=== PATIENT | female | born 1965 | race Caucasian/White ===

== ENCOUNTER 2024-03-04 13:39 | Observation (INO) ==
--- NOTE | 2024-03-04 14:48 | Emergency Department Note ---
Impression & Plan Allergic reaction, Lip swelling ED Provider Note HISTORY OF PRESENT ILLNESS: Patient is a 58-year-old female presenting with lip swelling. Patient presents from the [facility] facility. This is her third visit for similar symptoms. She reports that she had an allergic reaction to an unknown trigger yesterday. She had her initial rash. She was instructed that if she started having any lip swelling or trouble breathing that she should represent to the ER. Patient presented very early this morning for lip swelling. She was given epinephrine. Patient reports that she was doing better and then went back to the [facility] and her lip swelling worsened. She was given an IM epinephrine about 2 hours prior to my assessment. She states that her lip swelling is still the same. Unknown trigger. She is currently on Prozac taper. Denies any other new medications other than a sleep aid which she started last week per the recommendation of her psychiatrist. Denies any new soaps. She does report she has had some new food exposures since being at the [facility]. Denies any new lip gloss or cosmetics that have been used on her face. Patient does have a swollen upper lip. She denies any difficulty swallowing. Denies any tongue swelling. Denies any chest pain or shortness of breath. Denies any wheezing. Patient was given prednisone and Benadryl earlier this morning on her visit to the emergency department. In route to the hospital, patient was given IV Benadryl via EMS. Patient denies any lisinopril use. ROS: as above PHYSICAL EXAM: Constitutional: Patient appears in no acute distress. HENT: Head: Normocephalic and atraumatic. Patient has swelling to her upper lip. Eyes: EOMI, PERRL Mouth/Throat: Mucous membranes moist. Uvula midline. No tonsillar hypertrophy or exudate. Tongue is midline and not swollen. Neck: Trachea midline. Neck supple. Cardiovascular: Tachycardic with regular rhythm. No murmurs, rubs or gallops. Intact distal pulses. Pulmonary/Chest: No respiratory distress. Breath sounds clear and equal bilaterally. No wheezes or rales. Abdominal: Abdomen soft, no tenderness, rebound or guarding. Musculoskeletal: No edema, tenderness or deformity noted. Skin: Warm and dry. No rash, erythema, pallor or cyanosis Psychiatric: Appropriate mood and affect for situation. Neurological: Alert and keenly responsive. CN II-XII grossly intact, moving all extremities equally and fully. MDM: - Vitals signs showed tachycardia. - History obtained via patient. History as above. - Chronic conditions affecting care: depression - Differential diagnoses include, but are not limited to: anaphylaxis; angioedema; urticaria; topical reaction; medication side effect - Order placed for continuous cardiac monitoring. At this time, monitor showed rate of 83 bpm with normal sinus rhythm, per my interpretation. - External medical records reviewed. - EKG interpreted by myself showed normal sinus rhythm. Rate 95 bpm. QT 350. No acute ischemic changes. - Laboratory workup interpreted by myself showed leukocytosis (WBC 15.14); stable electrolytes - UA negative for infection. UDS negative - Patient given 1L NS and 25 mg IV benadryl in ER. She was given prednisone earlier today. She also was given epinephrine just prior to arrival in the emergency department. Patient's heart rate did come down after fluids and Benadryl. She then started complaining of a headache. Was given 1 g IV Tylenol. However, she does have persistent swelling of her lip. She is tolerating her secretions and has no tongue swelling. No significant wheezing or shortness of breath. - Discussion was had with medical case manager about patient's case and need for admission - Hospitalist, Dr. Nguyen, consulted for admission - [facility] for further evaluation and management. ASSESSMENT AND PLAN: Diagnosis: allergic reaction; lip swelling Plan: admit Past Med/Surg History Problem List (Updated 03/04/24 @ 19:25 by Bre Baldwin MD) Lip swelling (Acute) Allergic reaction (Acute) Hypokalemia (Acute) Allergic reaction (Acute) Adverse reaction to drug (Acute) Urticaria (Acute) Social History Smoking Status: Never smoker Preferred Language: Ugandan Feels Safe at Home: Yes Allergies Allergies Allergy/AdvReac Type Severity Reaction Status Date / Time bupropion [From Wellbutrin] Allergy Anaphylaxis Verified 03/04/24 06:00 fluoxetine [From Prozac] Allergy Anaphylaxis Verified 03/04/24 05:59 sertraline [From Zoloft] Allergy Anaphylaxis Verified 03/04/24 05:59 hydroxyzine AdvReac Depression Verified 03/04/24 05:59 skullcap Allergy Anaphylaxis Uncoded 03/04/24 05:59 Home Meds Home Medications Medication Instructions Recorded Confirmed Benadryl Allergy 25 - 50 mg PO USEASDIRECTD 03/04/24 03/04/24 famotidine 20 mg PO DAILY 03/04/24 03/04/24 Previous Rx's Medication Instructions Recorded epinephrine 0.3 mg/0.3 mL 0.3 mg (0.3 mL) IM Q5M PRN 03/04/24 injection, auto-injector (Auvi-Q) anaphylaxis #2 ea prednisone 50 mg tablet 50 mg PO DAILY 4 days #4 tabs 03/04/24 Results & Data (ED) Vital Signs Vital Signs - 24 hr 03/04/24 13:52 03/04/24 14:14 03/04/24 15:31 Temperature 36.7 C Temperature Source Oral Pulse Rate 129 H 119 H Pulse Rate [Apical] Pulse Rhythm Regular Pulse Strength Normal Respiratory Rate 20 Respiratory Effort / Characteristics Non-Labored Spontaneous Respiratory Depth Normal Respiratory Pattern Blood Pressure 113/89 Blood Pressure [Right Arm] Blood Pressure Mean 97 Blood Pressure Mean [Right Arm] Blood Pressure Position [Right Arm] Pulse Oximetry 97 96 Oxygen Delivery Method Room Air Room Air Sepsis Recent Fever Within 48 Hours Yes Sepsis New/Unexplained Change in Mental Status N/A Sepsis Action Taken by Nursing No Action Required 03/04/24 15:31 03/04/24 15:31 03/04/24 17:28 Temperature 36.7 C Temperature Source Oral Pulse Rate 108 H Pulse Rate [Apical] 103 H 82 Pulse Rhythm Pulse Strength Respiratory Rate 22 20 26 H Respiratory Effort / Characteristics Non-Labored Spontaneous Spontaneous Respiratory Depth Normal Respiratory Pattern Regular Tachypnea Blood Pressure Blood Pressure [Right Arm] 130/84 121/84 Blood Pressure Mean Blood Pressure Mean [Right Arm] 99 96 Blood Pressure Position [Right Arm] Pulse Oximetry 95 96 97 Oxygen Delivery Method Room Air Room Air Room Air Sepsis Recent Fever Within 48 Hours Sepsis New/Unexplained Change in Mental Status Sepsis Action Taken by Nursing 03/04/24 18:00 03/04/24 18:59 Temperature Temperature Source Pulse Rate 78 Pulse Rate [Apical] 83 Pulse Rhythm Pulse Strength Respiratory Rate 20 Respiratory Effort / Characteristics Non-Labored Spontaneous Respiratory Depth Normal Respiratory Pattern Regular Blood Pressure Blood Pressure [Right Arm] 123/88 Blood Pressure Mean Blood Pressure Mean [Right Arm] 99 Blood Pressure Position [Right Arm] Semi-fowlers Pulse Oximetry 95 Oxygen Delivery Method Room Air Sepsis Recent Fever Within 48 Hours Sepsis New/Unexplained Change in Mental Status Sepsis Action Taken by Nursing Laboratory Data 03/04/24 15:14 03/04/24 15:14 Lab Results 03/04/24 03/04/24 Range/Units 15:14 15:50 WBC 15.14 H (4.8-10.8) K/ul RBC 4.84 (4.20-5.40) M/uL Hgb 14.1 (12.0-16.0) g/dl Hct 41.5 (37.0-47.0) % MCV 85.7 (80.0-100.0) fL MCH 29.1 (25.0-34.0) pg MCHC 34.0 (32.0-36.0) g/dL RDW Std Deviation 38.9 (36.4-46.3) fL RDW Coeff of Nidia 12.6 (11.5-14.5) % Plt Count 252 (130-400) K/uL MPV 10.6 (9.4-12.4) fL Immature Gran % (Auto) 0.3 % Neut % (Auto) 95.0 % Lymph % (Auto) 2.4 % Leake % (Auto) 2.2 % Eos % (Auto) 0.0 % Baso % (Auto) 0.1 % Neut # (Auto) 14.40 H (1.40-6.50) K/uL Lymph # (Auto) 0.36 L (1.20-3.40) K/uL Leake # (Auto) 0.33 (0.11-0.59) K/uL Eos # (Auto) 0.00 (0.00-0.50) K/uL Baso # (Auto) 0.01 (0.00-0.20) K/uL Immature Gran # (Auto) 0.04 (0.01-0.20) K/uL Polychromasia 1+ Sodium 145 (136-145) mmol/L Potassium 4.1 D (3.5-5.1) mmol/L Chloride 113 H (98-107) mmol/L Carbon Dioxide 23 (21-32) mmol/L Anion Gap 9 (3-11) BUN 12 (6-23) mg/dl Creatinine 0.76 (0.6-1.2) mg/dl Est Cr Clr Drug Dosing 77.5 ml/min Est GFR ( Amer) 101.6 ml/min Est GFR (Non-Af Amer) 87.7 ml/min BUN/Creatinine Ratio 15.8 (10-20) Glucose 181 H (70-99(Fasting)) mg/dl Calcium 9.2 (8.6-10.3) mg/dl Total Bilirubin 0.3 (0.2-1.0) mg/dl AST 17 (13-39) U/L ALT 14 (7-52) U/L Alkaline Phosphatase 80 (34-104) U/L Total Protein 6.7 (6.0-8.3) gm/dl Albumin 3.9 (3.4-5.0) gm/dl Globulin 2.8 (2.5-4.0) gm/dl Albumin/Globulin Ratio 1.4 (0.9-2) Urine Color Yellow Urine Appearance Clear (Clear) Urine pH 6.5 (4.5-7.5) Ur Specific Ray 1.007 (1.000-1.030) Urine Protein Negative (Negative) Urine Glucose (UA) 1+ H (Negative) Urine Ketones Negative (Negative) Urine Blood Negative (Negative) Urine Nitrite Negative (Negative) Urine Bilirubin Negative (Negative) Urine Urobilinogen Negative (Negative) Ur Leukocyte Esterase Negative (Negative) Urine Opiates Screen Neg (Neg) Ur Methadone, Qual Neg (Neg) Urine Fentanyl Screen Neg (Neg) Urine Barbiturates Neg (Neg) Ur Phencyclidine (PCP) Neg (Neg) U Amphetamin/Meth Scrn Neg (Neg) MDMA (Ecstasy) Screen Neg (Neg) U Benzodiazepines Scrn Neg (Neg) Ur Cocaine Metabolite Neg (Neg) U Marijuana (THC) Screen Neg (Neg) Administered Medications Discontinued Medications Diphenhydramine HCl (Diphenhydramine 50 Mg/Ml Vial) 50 mg IV NOW STA Stop: 03/04/24 14:38 Last Admin: 03/04/24 15:28 Dose: Not Given Documented By: GARLAND Diphenhydramine HCl (Diphenhydramine 50 Mg/Ml Vial) 25 mg IV NOW STA Stop: 03/04/24 16:55 Last Admin: 03/04/24 17:29 Dose: 25 mg Documented By: GARLAND Sodium Chloride (Nss) 1,000 mls @ 999 mls/hr IV .Q1H1M ONE Stop: 03/04/24 15:37 Last Infusion: 03/04/24 19:00 Dose: Infused Documented By: Admin: 03/04/24 15:30 Dose: 999 mls/hr Documented By: GARLAND Acetaminophen (Ofirmev) 1,000 mg in 100 mls @ 400 mls/hr IV NOW STA Stop: 03/04/24 18:44 Last Admin: 03/04/24 18:57 Dose: 400 mls/hr Documented By: GARLAND Discharge Plan Visit Data Chief Complaint: Allergic Reaction Stated Complaint: Allergic reaction ED Provider: Bre Baldwin Discharge Problem: Allergic reaction, Lip swelling Forms Stand Alone Forms: [facility] Prescriptions Prescriptions: No Action Benadryl Allergy 25 mg tablet 25 - 50 mg PO USEASDIRECTD Rx Instructions: Following ED visit 03/03/24 patient instructed to take benadryl q6hrs (Dr. Moreau) famotidine 20 mg tablet 20 mg PO DAILY Rx Instructions: Following 03/03/24 ED visit, take daily for treatment of allergic reaction (Dr. Moreau). prednisone 50 mg tablet 50 mg PO DAILY 4 Days Qty: 4 0RF epinephrine [Auvi-Q] 0.3 mg/0.3 mL auto-injector 0.3 mg IM Q5M PRN (Reason: anaphylaxis) Qty: 2 1RF Referrals Referrals: Faiza Loco MD [Primary Care Provider] -
[2024-03-04] MEDS: diphenhydrAMINE 50 MG/ML VIAL IV STA ×2 (15:28→17:29)
[2024-03-04] MEDS: SODIUM CHLORIDE 0.9% 1,000 ML IV ONE (15:30)
[2024-03-04 15:33] LABS: Hematocrit (blood only) 41.5 % (37.0-47.0); Hemoglobin 14.1 g/dl (12.0-16.0); Mean Corpuscular Hemoglobin 29.1 pg (25.0-34.0); Mean Corpuscular Volume 85.7 fL (80.0-100.0); Mean Platelet Volume 10.6 fL (9.4-12.4); Platelet Count 252 K/uL (130-400); RDW Coefficient of Variation 12.6 % (11.5-14.5); RDW Standard Deviation 38.9 fL (36.4-46.3); Red Blood Count 4.84 M/uL (4.20-5.40); White Blood Count 15.14 K/ul (4.8-10.8)
[2024-03-04 15:53] LABS: Albumin Globulin Ratio 1.4 (0.9-2); Albumin Level 3.9 gm/dl (3.4-5.0); BUN Creatinine Ratio 15.8 (10-20); Bilirubin,Total 0.3 mg/dl (0.2-1.0); Calcium 9.2 mg/dl (8.6-10.3); Creatinine Clr Calc Pharmacy 77.5 ml/min; Est GFR (African American) 101.6 ml/min; Est GFR (Non-African American) 87.7 ml/min; Globulin 2.8 gm/dl (2.5-4.0); Potassium 4.1 mmol/L (3.5-5.1); Total Protein 6.7 gm/dl (6.0-8.3)
--- NOTE | 2024-03-04 16:04 | Electrocardiogram Report ---
Test Reason : Blood Pressure : / mmHG Vent. Rate : 095 BPM Atrial Rate : 095 BPM P-R Int : 148 ms QRS Dur : 068 ms QT Int : 350 ms P-R-T Axes : 051 068 055 degrees QTc Int : 439 ms Normal sinus rhythm Normal ECG No previous ECGs available Confirmed by Farzad Gibson ([id number]) on 03/04/2024 4:04:20 PM Referred By: REFERRED SELF Confirmed By:Devendra Gibson
[2024-03-04 16:22] LABS: Basophils # (auto) 0.01 K/uL (0.00-0.20); Basophils % (auto) 0.1 %; Immature Granulocytes # (auto) 0.04 K/uL (0.01-0.20); Immature Granulocytes % (auto) 0.3 %; Lymphocytes # (auto) 0.36 K/uL (1.20-3.40); Lymphocytes % (auto) 2.4 %; Monocytes # (auto) 0.33 K/uL (0.11-0.59); Monocytes % (auto) 2.2 %; Polychromasia 1+
[2024-03-04 17:07] LABS: Appearance Urine Clear (Clear); Bilirubin Urine Negative (Negative); Blood Urine Negative (Negative); Color Urine Yellow; Glucose Urine UA 1+ (Negative); Ketones Urine Negative (Negative); Leukocyte Esterase Urine Negative (Negative); Nitrite Urine Negative (Negative); Protein Urine Negative (Negative); Specific Gravity Urine 1.007 (1.000-1.030); Urobilinogen Urine Negative (Negative); pH Urine 6.5 (4.5-7.5)
[2024-03-04 18:17] LABS: Amphetamines+Metham, Urine Neg (Neg); Barbiturates, Urine Neg (Neg); Benzodiazepine, Urine Neg (Neg); Cocaine, Urine Neg (Neg); Fentanyl, Urine Neg (Neg); MDMA (Ecstacy), Urine Neg (Neg); Marijuana, Urine Neg (Neg); Methadone, Urine Neg (Neg); Opiate, Urine Neg (Neg); Phencyclidine, Urine Neg (Neg)
[2024-03-04] MEDS: ACETAMINOPHEN 1,000 MG/100 ML VIAL IV STA (18:57)
--- NOTE | 2024-03-04 19:21 | History & Physical Report ---
Date of Service March 04, 2024 Assessment & Plan (1) Allergic reaction: Plan: Admit to med/telemetry on pulse oximetry Currently stable, in no respiratory distress, and without signs of airway swelling/stridor Patient has presented to the ED 3 times in the past 24 hours for recurrent urticaria and swelling of the upper lip since arriving to the [facility] on 03/02/2024 While we cannot rule out Prozac as a possible cause, the patient was recently started on an elimination diet and has had multiple new foods including raw honey, sunflower seed butter, gluten-free crackers. Patient confirms that the rash started after she arrived to the [facility], therefore higher suspicion for possible foodborne allergy or new exposure Status post 75 mg IV Benadryl and 1 L NSS prior to admission We will continue with 25 mg IV Benadryl every 4 hours as needed allergy sym ptoms/itching, 20 mg IV twice daily famotidine, and 0.3 mg IM epinephrine every 15 minutes as needed anaphylaxis Will add RAST testing and food allergy panel for further evaluation Will try and avoid further doses of steroids at this time as this has significant increased anxiety Will add sunflower seed butter and raw honey to her allergy list for now Out of bed for DVT prophylaxis DM type II diet until blood sugar improves AM CBC, CMP, mag, PT/INR (2) Suicidal ideations: Plan: Patient is currently at the [facility] since 03/02/2024 due to ongoing suicidal ideation since being started on Prozac in January Denies current suicidal ideations or homicidal ideations We will continue suicide precautions at this time (3) Hyperglycemia: Plan: Patient was noted to be hyperglycemic at 181 on arrival Noted to have 1+ glucose in her urine No previous history of diabetes, her hyperglycemia is likely due to multiple doses of IV steroids over the past 24 hours For now we will start a DM type II diet, CF of 50 ACHS Suspect her blood sugar will improve with cessation of further steroids A.m. hemoglobin A1c ordered Plan The patient was discussed with Dr. Nguyen at the time of admission History of Present Illness Chief Complaint: Ongoing lip swelling Primary Care Provider: Faiza Loco MD Mariaa is a 58-year-old female patient of the [facility] with a past medical history significant suicidal ideations for who presented to the [facility] ED on 03/04/2024 for the third time in the past 24 hours for ongoing rash and lip swelling thought to be associated with an allergic reaction to unknown exposure. She was initially seen in the [facility] ED the morning of 03/03/2024 and was given 50 mg IV Benadryl, 20 mg IV famotidine, 15 mg IV Toradol, 10 mg IV dexamethasone and discharged back to the [facility] with prescriptions for p.o. Benadryl, p.o. famotidine, p.o. prednisone x 4 days, and epinephrine autoinjector for anaphylaxis. She returned to the ED in the [facility] today (03/04/2024) for worsening urticaria and swelling of the upper lip. The patient was given 1 dose from her EpiPen autoinjector approximately 1 hour prior to ED arrival with significant improvement in symptoms on arrival. She was stable while in the ED and given 500 mL NSS, 125 mg IV methylprednisolone, and 20 mg IV famotidine prior to being discharged back to the [facility]. She returned again this afternoon for worsening upper lip swelling. She was given a dose of IM epinephrine prior to arrival. Other than initial sinus tachycardia likely due to epinephrine administration the patient has remained stable since arrival. Labs are again consistent for leukocytosis likely due to multiple doses of IV methylprednisolone, glucose of 181, chloride of 113, UA without signs of infection, and negative toxicology screen. Prior to admission the patient was given 1 g IV Tylenol, a total of 75 mg IV Benadryl, and 1 L normal saline. Patient was sitting in bed in no acute distress at time of exam. She states that she arrived to the [facility] on 03/02/2024 due to significant suicidal ideation since starting Prozac and January. She had been undergoing Prozac taper, this has subsequently been completely stopped due to concerns for possible source. Since arriving to the [facility] she was started on an elimination diet as her psychiatrist thought she may be experiencing increased anxiety/depression from possible foodborne histamine release. She explains that since being started on elimination diet she has had multiple new foods including raw honey, sunflower seed butter, gluten-free crackers and some other foods she is unable to remember at this time. She confirms that her allergic reaction symptoms started after she began this diet. Currently her lip swelling is unchanged since arrival, she still has the urticarial rash on the majority of her body which is very itchy for her. She does feel that the Benadryl does help with the itching. If possible she would like to avoid further steroids as they have significantly increase her anxiety over the past 24 hours. When asked, she denies recent suicidal or homicidal ideations over the past 24 hours but still does not feel like she is back to her baseline mental status prior to starting Prozac. Denies recent fever, chills, throat/tongue swelling, shortness of breath, chest pain, cough, abdominal pain, nausea/vomiting, urinary symptoms, diarrhea, lower ex tremity swelling, and recent trauma. She did have a similar allergic reaction while on Wellbutrin approximately 20 years ago. Please refer to Dr. Nguyen's attestation for any changes to the treatment plan Allergies Allergy/AdvReac Type Severity Reaction Status Date / Time bupropion [From Wellbutrin] Allergy Anaphylaxis Verified 03/04/24 06:00 fluoxetine [From Prozac] Allergy Anaphylaxis Verified 03/04/24 05:59 sertraline [From Zoloft] Allergy Anaphylaxis Verified 03/04/24 05:59 hydroxyzine AdvReac Depression Verified 03/04/24 05:59 raw honey Allergy Intermediate Hives Uncoded 03/04/24 20:14 sunflower seed butter Allergy Intermediate Hives Uncoded 03/04/24 20:14 skullcap Allergy Anaphylaxis Uncoded 03/04/24 05:59 Home Medications Medication Instructions Recorded Confirmed Type Benadryl Allergy 25 - 50 mg PO USEASDIRECTD 03/04/24 03/04/24 History epinephrine 0.3 mg/0.3 mL 0.3 mg (0.3 mL) IM Q5M PRN 03/04/24 03/04/24 Rx injection, auto-injector (Auvi-Q) anaphylaxis #2 ea famotidine 20 mg PO DAILY 03/04/24 03/04/24 History prednisone 50 mg tablet 50 mg PO DAILY 4 days #4 tabs 03/04/24 03/04/24 Rx Past Med/Surg History Problem List (Updated 03/05/24 @ 19:40 by Polina Son MD) Depression, unspecified Anxiety disorder, unspecified Erythema multiforme Suicidal ideations Hyperglycemia Lip swelling (Acute) Allergic reaction (Acute) Hypokalemia (Acute) Allergic reaction (Acute) Adverse reaction to drug (Acute) Urticaria (Acute) Social History Smoking Status: Never smoker Second Hand Exposure: No; Do You Dip or Chew Tobacco: No; Hx Alcohol Use: No Hx Substance Use: No Preferred Language: Faroese Communication Ability: Effective Coin Purse Framer Required: No Beliefs That Will Affect Care: Pentecostalism Current Living Situation: Family Current Living Situation Comment: lives with and two kids Feels Safe at Home: Yes Physical Exam Physical Exam: Physical Exam: General: In no acute distress, stated age, non-toxic appearing HEENT: Atraumatic, no scleral icterus, pupils around round, symmetrical, and reactive to light, patient with swelling of the upper lip, moist mucus membranes, no signs of tongue or oropharynx swelling, trachea midline, no thyromegaly Chest/Pulm: No respiratory distress, symmetrical chest expansion, clear breath sounds throughout Cardiac: RRR, no murmurs noted Abdomen: Negative for ascites and bruising, normoactive bowel sounds, soft, non-tender to palpation throughout Musculoskeletal: Symmetrical and without signs of acute trauma, upper and lower extremities with full ROM, no atrophy, spasticity, or flaccidity Extremities: Radial, dorsalis pedis, and posterior tibial pulses are intact and symmetrical, no edema noted in the BL LE's Skin: Patient with urticarial rash on the trunk, abdomen, back, and BL upper/lower extremities, no signs of skin trauma Neuro: Alert and oriented to person, place, month, year, and president, no focal defects, no tremors noted Psych: No acute distress, polite, calm and cooperative during the exam Results & Data Results & Data Vital Signs (Past 12 Hours) Vital Signs Temp Pulse Pulse Resp BP BP Pulse Ox 03/04/24 18:59 83 20 123/88 95 03/04/24 18:00 78 03/04/24 17:28 82 26 H 121/84 97 03/04/24 15:31 108 H 20 96 03/04/24 15:31 36.7 C 103 H 22 130/84 95 03/04/24 15:31 96 03/04/24 14:14 119 H 03/04/24 13:52 36.7 C 129 H 20 113/89 97 O2 Del Method 03/04/24 18:59 Room Air 03/04/24 18:00 03/04/24 17:28 Room Air 03/04/24 15:31 Room Air 03/04/24 15:31 Room Air 03/04/24 15:31 Room Air 03/04/24 14:14 03/04/24 13:52 Room Air Laboratory Results Abnormal lab results 03/04/24 03/04/24 Range/Units 15:14 15:50 WBC 15.14 H (4.8-10.8) K/ul Neut # (Auto) 14.40 H (1.40-6.50) K/uL Lymph # (Auto) 0.36 L (1.20-3.40) K/uL Chloride 113 H (98-107) mmol/L Glucose 181 H (70-99(Fasting)) mg/dl Urine Glucose (UA) 1+ H (Negative) ECG Additional Comments: Normal sinus rhythm Normal ECG No previous ECGs available Confirmed by Farzad Gibson ([id number]) on 03/04/2024 4:04:20 PM Code Status & VTE Plan Code Status Full code VTE Prophylaxis Plan VTE Prophylaxis will be ordered: Yes Supervising Physician Co-Signing Physician Notes Attending addendum: I have physically seen this patient, have supervised the BILLY's activities, and agree with the H&P unless as otherwise noted. Assessment and Plan: Allergic reaction- Admit to medical telemetry Unclear etiology at this time for intermittent lip swelling Received Benadryl IV, famotidine IV and 1 L normal saline bolus from the ED Continue Benadryl 25 mg IV every 4 hours as needed, famotidine 20 mg IV twice daily and will have 0.3 mg IM epinephrine available every 15 minutes as needed No signs of airway compromise Add RAST testing for zone 3 allergens Add RAST testing for food allergens Hyperglycemia- Glucose 181 on arrival Check hemoglobin A1c Start diabetic diet with SSI Check hemoglobin A1c Suicidal ideations- Recently at [facility] since 03/02/2024 Suicidal precautions One-to-one observation Consult psychiatry PG Care Time/CCT Total # of Minutes Spent Total Time Spent with Patient: Total time spent is greater than 50% in coordination of care (as documented) at patient's floor/unit and/or counseling patient: [place] [address] INT INP/OBS CARE 3/75MIN Patient Type New Medical Decision Making High Complexity Diagnoses Allergic reaction T78.40XA Suicidal ideations R45.851 Hyperglycemia R73.9
[2024-03-04] MEDS ORDERED: ONDANSETRON INJ 2 MG/ML 2 ML VIAL IV PRN (19:53)
[2024-03-04] MEDS ORDERED: CARBOHYDRATES FOR HYPOGLYCEMIA PO PRN (20:00)
[2024-03-04] MEDS ORDERED: GLUCAGON FOR INJ 1 MG VIAL SQ PRN (20:00)
[2024-03-04] MEDS ORDERED: GLUCOSE 10 TAB/TUBE PO PRN (20:00)
[2024-03-04] MEDS ORDERED: DEXTROSE 50% 50 ML SYRINGE IV PRN (20:00)
[2024-03-04] MEDS ORDERED: GLUCOSE 40% GEL 15 GM TUBE PO PRN (20:00)
[2024-03-04] MEDS: diphenhydrAMINE 50 MG/ML VIAL IV PRN (20:34)
[2024-03-04] MEDS: INSULIN ASPART PER UNIT CHARGE SC SCH (21:29)
[2024-03-04] MEDS: FAMOTIDINE 20MG IV PUSH 20 MG/5 ML SYR IV SCH (21:31)
[2024-03-05] MEDS: SUCRALFATE 1 GM TAB PO STA (00:33)
[2024-03-05] MEDS: SIMETHICONE 80 MG CHEW PO PRN (02:11)
[2024-03-05] MEDS: diphenhydrAMINE 2%/ZINC 0.1% CREAM 28.4GM TUBE EXT PRN (02:34)
[2024-03-05] MEDS: EPINEPHrine INJ 1 MG/ML AMP IM PRN (02:44)
[2024-03-05 04:41] LABS: Appearance Urine Cloudy (Clear); Bilirubin Urine Negative (Negative); Blood Urine 3+ (Negative); Color Urine Red; Glucose Urine UA Negative (Negative); Ketones Urine Negative (Negative); Leukocyte Esterase Urine Negative (Negative); Nitrite Urine Negative (Negative); Protein Urine 2+ (Negative); Urobilinogen Urine Negative (Negative)
[2024-03-05] MEDS: ACETAMINOPHEN 325 MG TAB PO PRN (04:47)
[2024-03-05 04:53] LABS: Bacteria Urine None Seen (None Seen); Epithelial Cell Urine 0-2 /hpf (0-2); RBC Urine >20 /hpf (0-2); WBC Urine 0-5 /hpf (0-5)
--- NOTE | 2024-03-05 05:57 | Communication Note ---
Date of Service: March 05, 2024 2200 Notified of patient's persistent/worsening hives followed by lip swelling. Patient with mental health instability at baseline, but now noting increased anxiety regarding her symptoms. Patient noted to be frequently calling family and notifying them that she is getting worse. Patient continues to have 1:1 for mental health concerns. Vitals: Hemodynamically stable. Vitals wnl. Exam: Generally anxious w/ rapid speech. Heart RRR. Lungs non-labored, CTAB. Diffuse, raised hives over chest/back/abdomen/neck/arms. Ongoing upper lip swelling. No tongue or throat swelling. Labs: WBC count 15, otherwise unremarkable Plan - No evidence of airway compromise - Provided additional 25 mg Benadryl to make 50 mg dose - patient noted improvement to itching. - Steroids ongoing, likely explanation for leukocytosis - Provided topical Benadryl cream for sx relief - 0300 Lip remained swollen, patient alarmed, thus provided PRN Epinephrine (previously ordered) - 0400 Subsequently patient noted episode of hematuria - urinalysis ordered, no dysuria or suprapubic discomfort - Patient developed tachycardia and elevated temperature following additional epinephrine administration, counseled regarding potential a/w multiple epinephrine doses Would continue to monitor vitals closely into AM and proceed with infectious workup if vitals remain abnormal. - Pend AM Labs Resident Activity Tracking Resident Involvement: Resident Care Provided Care Provided: Adult Hospital Medicine
[2024-03-05] MEDS ORDERED: Nursing to Pharmacy Communication SCH ×2 (06:30→12:00)
[2024-03-05] MEDS: INSULIN ASPART PER UNIT CHARGE SC SCH ×2 (06:41→13:16)
--- NOTE | 2024-03-05 07:17 | XRay Report ---
XR chest 1V portable HISTORY: chest pain COMPARISON: None. FINDINGS: The lungs are clear. Cardiac silhouette is normal in size. No pleural effusions. No pneumot horax. IMPRESSION: No acute process. ACT 112: Negative or not required by law. Electronically signed by: Rafy Yadav M.D. 03/05/2024 7:16 AM
--- NOTE | 2024-03-05 07:52 | Hospitalist Progress Note ---
Date of Service March 05, 2024 Assessment & Plan (1) Allergic reaction: Plan: Patient has presented to the ED 3 times within 24 hours of admit, for recurrent urticaria and swelling of the upper lip [facility] While we cannot rule out Prozac as a possible cause, similar reaction 20 years ago with Wellbutrin looks like erythema migrans, could be drug or viral cause Patient confirms that the rash started after she arrived [facility], prozac stopped, on pepcid, given methylprednisolone, Claritin 20 bid and doxepin Ordered RAST testing and food allergy panel for further evaluation, tryptase pending -greatly appreciate allergy input, pt was very appreciative of consult and education DM type II diet until blood sugar improves spoke to family at bedside and updated on phone spoke via secure chat to both allergy doctors in the group (2) Suicidal ideations: Plan: [facility] due to ongoing suicidal ideation since being started on Prozac in January Denies current suicidal ideations or homicidal ideations Psychiatry consult has seen and feels there is no longer a risk (3) Hyperglycemia: Plan: Patient was noted to be hyperglycemic at 181 on arrival Noted to have 1+ glucose in her urine No previous history of diabetes, her hyperglycemia is likely due to multiple doses of IV steroids over the past 24 hours hemoglobin A1c ordered Admission and Anticipated Discharge Date Admission Date: March 04, 2024 Subjective Patient is uncomfortable. She has some anxiety. She is given her recent dose of Benadryl intravenously. She has a well-demarcated raised pruritic serpiginous rash on her torso arms legs and even palms She states she had a very similar reaction 20 years ago to Wellbutrin She offers no shortness of breath or mouth lesions there is no stridor Physical Exam Physical Exam: Awake alert appropriate able to provide a good history. She is tachycardic but regular with regard to her heart Lungs are clear without wheezes there is no stridor Abdomen NABS soft nontender rashes as described above Results & Data Results & Data Vital Signs (Past 12 Hours) Vital Signs Temp Pulse Pulse Pulse Resp BP Pulse Ox 03/05/24 07:39 120 H 16 108/74 95 03/05/24 07:25 111 H 03/05/24 05:43 99.7 F H 03/05/24 04:43 99.3 F 128 H 20 123/80 99 03/05/24 03:05 98.4 F 96 H 20 132/86 99 03/05/24 00:03 98.2 F 78 20 125/76 96 03/05/24 00:00 76 03/04/24 22:26 97.7 F 72 24 139/89 99 03/04/24 20:30 77 20 123/89 96 03/04/24 19:46 98.2 F 81 18 121/82 96 O2 Del Method 03/05/24 07:39 Room Air 03/05/24 07:25 03/05/24 05:43 03/05/24 04:43 Room Air 03/05/24 03:05 Room Air 03/05/24 00:03 Room Air 03/05/24 00:00 03/04/24 22:26 Room Air 03/04/24 20:30 Room Air 03/04/24 19:46 Room Air Laboratory Results review cbc review chemistry PG Care Time/CCT Total # of Minutes Spent Total Time Spent with Patient: Total time spent is greater than 50% in coordination of care (as documented) at patient's floor/unit and/or counseling patient: Coding Level of Care Code 14708 SUB INP/OBS CARE 3/50MIN Diagnoses Allergic reaction T78.40XA Suicidal ideations R45.851 Hyperglycemia R73.9
[2024-03-05 08:33] LABS: Basophils # (auto) 0.01 K/uL (0.00-0.20); Basophils % (auto) 0.1 %; Eosinophils # (auto) 0.01 K/uL (0.00-0.50); Eosinophils % (auto) 0.1 %; Hematocrit (blood only) 44.6 % (37.0-47.0); Hemoglobin 15.2 g/dl (12.0-16.0); Immature Granulocytes # (auto) 0.03 K/uL (0.01-0.20); Immature Granulocytes % (auto) 0.4 %; Lymphocytes # (auto) 1.09 K/uL (1.20-3.40); Lymphocytes % (auto) 13.7 %; Mean Corpuscular Hemoglobin 29.1 pg (25.0-34.0); Mean Corpuscular Hgb Conc 34.1 g/dL (32.0-36.0); Mean Corpuscular Volume 85.3 fL (80.0-100.0); Monocytes % (auto) 2.5 %; Neutrophils # (auto) 6.63 K/uL (1.40-6.50); Neutrophils % (auto) 83.2 %; Platelet Count 262 K/uL (130-400); RDW Coefficient of Variation 12.9 % (11.5-14.5); RDW Standard Deviation 39.7 fL (36.4-46.3); Red Blood Count 5.23 M/uL (4.20-5.40); White Blood Count 7.97 K/ul (4.8-10.8)
[2024-03-05 08:49] LABS: Estimated Average Glucose 105 mg/dl; Hemoglobin A1C 5.3 % (4.5-5.6)
[2024-03-05 08:52] LABS: Albumin Globulin Ratio 1.3 (0.9-2); Albumin Level 3.6 gm/dl (3.4-5.0); BUN Creatinine Ratio 12.7 (10-20); Bilirubin,Total 0.5 mg/dl (0.2-1.0); Calcium 8.8 mg/dl (8.6-10.3); Creatinine Clr Calc Pharmacy 76.4 ml/min; Est GFR (African American) 110.4 ml/min; Est GFR (Non-African American) 95.2 ml/min; Globulin 2.7 gm/dl (2.5-4.0); Magnesium 1.7 mg/dl (1.7-2.4); Potassium 3.6 mmol/L (3.5-5.1); Total Protein 6.3 gm/dl (6.0-8.3)
[2024-03-05] MEDS: diphenhydrAMINE 50 MG/ML VIAL IV STA (09:32)
[2024-03-05] MEDS ORDERED: methylPREDNISolone 1000 MG/16 ML IV ONE (09:46)
[2024-03-05] MEDS: LORATADINE 10 MG TAB PO SCH (10:40)
[2024-03-05] MEDS: methylPREDNISolone 125 MG in SYRINGE 0 ML IV ONE (10:41)
[2024-03-05] MEDS: LORazepam 0.5 MG in SYRINGE 0.25 ML IV STA ×2 (12:05→16:09)
--- NOTE | 2024-03-05 12:37 | Allergy & Immunology Consult ---
Date of Consultation March 05, 2024 Assessment & Plan (1) Erythema multiforme: (2) Urticaria: Plan Patient presents with urticaria and angioedema that appear in a pattern that is very consistent with erythema multiforme. This could either be drug-induced, viral in nature, or even both. She does describe symptoms that could be associated with a viral infection a few days prior to the rash developing, and so I do have a high suspicion that this may be viral in nature. However, I cannot exclude that this was secondary to Prozac. It would be unusual that someone would develop a significant reaction as the medicine was being weaned off. For now I would recommend avoiding this. If she needs another SSRI in the future, we can address this on a [id number] basis and potentially do testing to determine whether would be safe. This will need to be done as an outpatient once the rash has resolved. Because she has no cutaneous symptoms, the main treatment at this point would be directed to keeping her comfortable and reducing the itching. It likely will take weeks for this to resolve completely and the rash does not need to be completely gone for her to be discharged. The main goal would be to make sure things are stable or improving. I recommend continuing prednisone, though I do have concerns that this may worsen her anxiety/depression. However, untreated urticaria can itself be a significant trigger for anxiety/depression and this can actually lead to suicidal ideations if patients are uncomfortable enough. I recommend that we start a nonsedating antihistamine, cetirizine 20 mg p.o. twice daily. It would be ideal to also consider an older generation antihistamine, but given her history of adverse reaction to hydroxyzine we have limited options. We could consider doxepin at the dose of 10 mg at bedtime and this could be increased to 25 mg if there is still no benefit. I would recommend continuing the prednisone for 5 to 7 days followed by a taper over a week or so. Patients are very prone to hives rebounding if this is tapered too quickly. The famotidine can be continued and I would recommend a dose of 40 mg twice daily, though I expected this will likely only help the symptoms slightly. We also discussed the differential diagnosis includes chronic idiopathic urticaria and mast cell activation syndrome. She has a tryptase is pending, which can help determine if there is an underlying mast cell disorder. We also discussed that there is no validity to the idea of dietary histamine causing problems. Most of the claims related to are pseudoscience that is pushed by functional medicine doctors and have no true scientific basis. I recommend that she go back to a regular diet. History of Present Illness Reason for Consultation: Hives Attending Physician: Nasir Aguila MD History of Present Illness This is a 58-year-old female with a past medical history significant for anxiety and depression that presents with about 3 days of hives and associated lip swelling. She was a patient of [facility] because of depression and anxiety. She was started on Prozac and also was on hydroxyzine at some point. She was using it primarily for sleep but also for anxiety and that she was getting off of it, it seemed to set off a flare of depression. This was about the time that the Prozac started and the timing is not completely clear but the may have overlap for a period. She was on the Prozac for about a month and overall felt worse. She felt like she was burning from the inside and it was not providing significant benefit. As result, they were in the process of weaning her off of the Prozac when the rash developed. She thinks that she was down to a dose of slowest 2 mg and had been receiving this as a liquid formulation when the rash started. She has hive-like rashes that she describes as red, itchy along with swelling of the lips. She also feels some soreness in the throat, but denies any oral lesions or ulcers in the mouth. There are a few skin lesions that she feels are from her course and are still red but look more like bruises, and these are not itchy. Right now the chest and the arms are the most itchy areas. We discussed whether she had any symptoms of viral infections leading up to the rash. She did note that she was achy and felt fatigued and possibly had low- grade fevers or chills. She has had some changes in diet. Apparently her psychiatrist felt that histamine containing foods could have been exacerbating her symptoms of depression and so she was switched to a diet that included honey, sunflower seeds, lots of nuts. She was also directed to take skullcap to help her sleep. This has been discontinued and she believes that she had stopped that well before the hives started. She reports that she had 1 previous episode of hives that occurred years ago when she was prescribed Wellbutrin. She was using this for depression symptoms throughout her menstrual cycle and would start this before her cycle for 10 days. She completed 1 cycle of this that okay but then the next time she took Wellbutrin the first dose caused her to break out in hives all over. She also describes this is diffuse and she was admitted to the hospital for a week. She has avoided Wellbutrin since then and has not had any more hives. Allergies Allergy/AdvReac Type Severity Reaction Status Date / Time bupropion [From Wellbutrin] Allergy Anaphylaxis Verified 03/04/24 06:00 fluoxetine [From Prozac] Allergy Anaphylaxis Verified 03/04/24 05:59 sertraline [From Zoloft] Allergy Anaphylaxis Verified 03/04/24 05:59 hydroxyzine AdvReac Depression Verified 03/04/24 05:59 raw honey Allergy Intermediate Hives Uncoded 03/04/24 20:14 sunflower seed butter Allergy Intermediate Hives Uncoded 03/04/24 20:14 skullcap Allergy Anaphylaxis Uncoded 03/04/24 05:59 Home Medications Medication Instructions Recorded Confirmed Type Benadryl Allergy 25 - 50 mg PO USEASDIRECTD 03/04/24 03/04/24 History epinephrine 0.3 mg/0.3 mL 0.3 mg (0.3 mL) IM Q5M PRN 03/04/24 03/04/24 Rx injection, auto-injector (Auvi-Q) anaphylaxis #2 ea famotidine 20 mg PO DAILY 03/04/24 03/04/24 History prednisone 50 mg tablet 50 mg PO DAILY 4 days #4 tabs 03/04/24 03/04/24 Rx Patient History Social History Smoking Status: Never smoker Second Hand Exposure: No; Do You Dip or Chew Tobacco: No; Hx Alcohol Use: No Hx Substance Use: No Preferred Language: Palestinian Communication Ability: Effective Hand Etcher Required: No Beliefs That Will Affect Care: Jain Current Living Situation: Family Current Living Situation Comment: lives with and two kids Feels Safe at Home: Yes Review of Systems Review of Systems: Constitutional: all normal. HEENT: as per HPI otherwise normal. Respiratory: as per HPI otherwise normal. Cardiovascular: all normal. Gastrointestinal: all normal. Skin: as per HPI otherwise normal. Endocrine: all normal. Hematologic: all normal. Musculoskeletal: all normal. Neurologic: all normal. Psychiatric: all normal. Vascular: all normal. Urinary: all normal. Physical Exam Eyes: no conjunctival abnormality, no scleral abnormality and sclerae not anicteric ENMT: Nose: no turbinate abnormality, no nasal mucous membrane abnormality, no septum abnormality and no nasal discharge Mouth: no lip abnormality and no oropharynx abnormality Throat: no postnasal drainage Neck: trachea midline, no thyromegaly Respiratory: normal respiratory effort; no respiratory distress Auscultation: no crackles, no rhonchi and no wheezes Cardiovascular: RRR, no murmur, no edema Gastrointestinal (Abdomen): Inspection/Auscultation: abdomen normal to inspection and normal bowel sounds; abdomen not distended Musculoskeletal: Head/Neck/Chest: + head abnormal to inspection and normocephalic Skin: + rash More circumscribed, erythematous, raised lesions are blanching. Many of these are circular and there are a number of target appearing lesions on the legs. These are well-circumscribed and serpiginous in many areas. The rash involves all parts of the body at this point, though the back is less severe than her chest and arms. Neurologic: awake Speech / Cognition: normal cognition Motor/Sensory: normal movement Psychiatric: A+Ox3, euthymic affect Results & Data Vital Signs (Past 12 Hours) Vital Signs Temp Pulse Pulse Resp BP Pulse Ox O2 Del Method 03/05/24 11:29 36.4 C L 126 H 20 132/78 99 Room Air 03/05/24 09:26 37.0 C 03/05/24 07:39 120 H 16 108/74 95 Room Air 03/05/24 07:25 111 H 03/05/24 05:43 37.6 C H 03/05/24 04:43 37.4 C 128 H 20 123/80 99 Room Air 03/05/24 03:05 36.9 C 96 H 20 132/86 99 Room Air Coding Level of Care Code 48609 IN/OBS CONSULT LVL 4,60M Diagnoses Erythema multiforme L51.9 Urticaria L50.9 Time Spent (min) 62
--- NOTE | 2024-03-05 15:28 | Psychiatric Consultation ---
Date of Consultation March 05, 2024 Impression / Recommendations Impression Diagnostically consistent with unspecified depression and anxiety either secondary to new medical condition vs adjustment disorder with depression and anxiety worsened by new rash and allergic reaction. From risk assessment standpoint acute risk is low given denial of SI, lack of access to lethal means, future-oriented, and strong deterrents and willingness to engage in outpatient treatment. Chronic risk is low given few non-modifiable risk factors and also with multiple protective factors. Counseled on ways to reduce acute and chronic risk including engaging with outpatient providers,utilizing supports, taking medication, and utilizing coping skills. Agree with use of doxepin as this can be a very effective medication for sleep, anxiety and depression. Would be very cautious with any future trials of SSRI or SNRI medications given now two likely allergic reactions to medications with serotonin and norepinephrine vs dopamine effects. Given fluoxetine's long half-life no concerns with abrupt discontinuation especially given concerns for anaphylaxis and already slowly weaned and at a very low dose. Overall, I spent a total of 60 minutes with this case including review of chart records, review of labwork, direct evaluation of the patient at bedside, counseling the patient, discussion of the patient with the Nurse and with the hospitalist provider, discussion with the psychiatric liason during clinical rounds, review of collateral historian information from the family and documentation in the electronic health record. (1) Anxiety disorder, unspecified: (2) Depression, unspecified: (3) Allergic reaction: Plan -Does not require 1-on-1 or safety precautions -From psychiatric standpoint she can discharge to home once medically stable -Agree with no further use of fluoxetine and given timing avoidance of Vistaril -Doxepin, as recommended by warp knitter provider, also has benefits for insomnia, anxiety and depression so agree with this choice -Ongoing pain symptoms, will defer to hospitalist provider but if felt to be due in part to anxiety then could consider gabapentin 100mg TID prn and titrate as needed to effect for off-label use as she prefers to avoid any benzodiazepines and recommendation to avoid hydroxyzine given concerns this may have contributed to current presentation -She is looking into options for outpatient psychiatry that her insurance will cover in her area, psych liason to provide resources around [facility] should she be unable to find anything more local as backup option -Reviewed what to do should she develop SI in the future Psych History Identifying Data Mariaa is a 58 yo woman with a history of depression and anxiety admitted medically after experiencing a suspected allergic reaction while receiving inpatient psychiatric treatment at the [facility]. Psychiatry consulted for risk assessment. Chief Complaint "My anxiety is less now, it comes in waves, the bigger issue now is the pain". History of Present Illness Mariaa was admitted medically after developing hives and lip swelling while at the [facility]. In late December she began experienced panic attacks that would wake her from sleep. She saw an outpatient psychiatrist who started her on fluoxetine in January. However, she developed an internal sense of "fire and burning" after starting this and due to her level of physical distress and feeling like she could not cope with the sensation developed passive SI. She went to an alternative medicine clinic in [place] in January who suggested possible dietary influence and she started an elimination diet. She had started to taper her fluoxetine but was doing so very slowly due to her concerns that coming off of it was causes increased anxiety and SI and was admitted to the [facility] for further assessment and medication adjustments. She reports a severe allergic reaction suspected to be caused by Prozac. She also suspects a possible reaction to the herb skullcap. She has a history of severe reaction to Wellbutrin and intolerance to Zoloft. She denies any past psychiatric hospitalizations prior to [facility] admission over the last two days nor any prior suicide attempts and reports no current suicidal thoughts. She reports no access to guns at home.She reports strong deterrents to suicide and reasons for living include her family, children, parents, and grandchildren. She does not have a current psychiatrist due to insurance issues but her is working to identify someone through the insurance company. She experienced burning distress and agitation, leading her to seek help at the [facility]. She has undergone genetic testing and an elimination diet due to a suspected connection with histamine. She is concerned about the potential withdrawal effects of Prozac and the impact of steroids on her mood and anxiety but does feel her mood is improving knowing that this allergic reaction was occurring and does not desire any further inpatient psychiatric treatment at this time. She feels able to tell her family and utilize crisis services including going to the hospital if she were to develop SI in the future. She describes intense physical discomfort, feeling like thousands of tiny stings, particularly when exposed to air or when her skin rubs against sheets. She is hesitant to take Ativan and is unsure if pain medication would help alleviate her symptoms. She expresses difficulty coping with her current physical state but denies suicidal ideation. Allergies Allergy/AdvReac Type Severity Reaction Status Date / Time bupropion [From Wellbutrin] Allergy Anaphylaxis Verified 03/04/24 06:00 fluoxetine [From Prozac] Allergy Anaphylaxis Verified 03/04/24 05:59 sertraline [From Zoloft] Allergy Anaphylaxis Verified 03/04/24 05:59 hydroxyzine AdvReac Depression Verified 03/04/24 05:59 raw honey Allergy Intermediate Hives Uncoded 03/04/24 20:14 sunflower seed butter Allergy Intermediate Hives Uncoded 03/04/24 20:14 skullcap Allergy Anaphylaxis Uncoded 03/04/24 05:59 Home Medications Medication Instructions Recorded Confirmed Type Benadryl Allergy 25 - 50 mg PO USEASDIRECTD 03/04/24 03/04/24 History epinephrine 0.3 mg/0.3 mL 0.3 mg (0.3 mL) IM Q5M PRN 03/04/24 03/04/24 Rx injection, auto-injector (Auvi-Q) anaphylaxis #2 ea famotidine 20 mg PO DAILY 03/04/24 03/04/24 History prednisone 50 mg tablet 50 mg PO DAILY 4 days #4 tabs 03/04/24 03/04/24 Rx Patient History Social History Smoking Status: Never smoker Second Hand Exposure: No; Do You Dip or Chew Tobacco: No; Hx Alcohol Use: No Hx Substance Use: No Preferred Language: Persian Communication Ability: Effective Barrel Reamer Required: No Beliefs That Will Affect Care: Caodaism Current Living Situation: Family Current Living Situation Comment: lives with and two kids Feels Safe at Home: Yes Physical Exam Psychiatric: Orientation: alert, oriented x 3 and cooperative Eye Contact: good eye contact Motor Behavior: no abnormal motor movements Speech: normal rate/rhythm/volume of speech Affect: + anxious affect Mood: + anxious mood Thought Process: + circumstantial thought process Thought Content: reality based without delusions Suicidal Thoughts: denies suicidal thoughts Homicidal Thoughts: denies homicidal thoughts Hallucinations: no auditory hallucinations and no visual hallucinations Insight: + fair insight Judgment: + fair judgement Vital Signs (Past 24 Hours): Last Vital Signs Temp 36.4 C L 03/05/24 11:29 Pulse 126 H 03/05/24 11:29 Resp 20 03/05/24 11:29 BP 132/78 03/05/24 11:29 Pulse Ox 99 03/05/24 11:29 O2 Del Method Room Air 03/05/24 11:29 Results & Data (PSY) Medications Administered Acetaminophen (Acetaminophen 325 Mg Tab) 650 mg PO Q6H PRN PRN Reason: pain(1-4),headache,fever Stop: 04/03/24 19:51 Last Admin: 03/05/24 04:47 Dose: 650 mg Documented By: MG Diphenhydramine HCl (Diphenhydramine 50 Mg/Ml Vial) 25 mg IV Q4H PRN PRN Reason: Allergic Symptoms Stop: 04/03/24 21:59 Last Admin: 03/05/24 07:46 Dose: 25 mg Documented By: Admin: 03/05/24 02:04 Dose: 25 mg Documented By: Admin: 03/05/24 00:33 Dose: 25 mg Documented By: Admin: 03/04/24 20:34 Dose: 25 mg Documented By: GARLAND Epinephrine HCl (Epinephrine Inj 1 Mg/Ml Amp) 0.3 mg IM Q15M PRN PRN Reason: Anaphylaxis Stop: 04/03/24 19:59 Last Admin: 03/05/24 02:44 Dose: 0.3 mg Documented By: MG Famotidine (Pepcid 20mg Iv Push) 20 mg in 5 mls @ 2.5 mls/min IV Q12H KARLY Stop: 04/03/24 21:59 Last Admin: 03/05/24 10:40 Dose: 2.5 mls/min Documented By: Admin: 03/04/24 21:31 Dose: 2.5 mls/min Documented By: GARLAND Insulin Aspart (Insulin Aspart Per Unit Charge) 0 units SC [facility] Stop: 04/04/24 11:59 Last Admin: 03/05/24 13:16 Dose: Not Given Documented By: REGINE Simethicone (Simethicone 80 Mg Chew) 80 mg PO Q6H PRN PRN Reason: Flatulence/Belching Stop: 04/04/24 00:25 Last Admin: 03/05/24 02:11 Dose: 80 mg Documented By: MG Zinc Acetate/Diphenhydramine (Diphenhydramine 2%/Zinc 0.1% Cream 28.4gm Tube) 1 appln EXT TID PRN PRN Reason: Hives/Itching Stop: 04/04/24 02:02 Last Admin: 03/05/24 09:19 Dose: 1 appln Documented By: Admin: 03/05/24 02:34 Dose: 1 appln Documented By: MG Coding Level of Care Code 60822 IN/OBS CONSULT LVL 4,60M Diagnoses Anxiety disorder, unspecified F41.9 Depression, unspecified F32.A Allergic reaction T78.40XA
[2024-03-05] MEDS: DOXEPIN HCL 10 MG CAPSULE PO ONE (16:09)
[2024-03-05] MEDS ORDERED: methylPREDNISolone 1000 MG/16 ML IV SCH (19:00)
[2024-03-05] MEDS: methylPREDNISolone 40 MG in SYRINGE 0 ML IV SCH (20:09)
[2024-03-05] MEDS: DOXEPIN HCL 10 MG CAPSULE PO SCH (21:26)
[2024-03-05] MEDS: CETIRIZINE HCL 10 MG TABLET PO SCH (21:26)
[2024-03-06] MEDS: diphenhydrAMINE 50 MG/ML VIAL IV STA (05:58)
[2024-03-06 08:51] LABS: Basophils # (auto) 0.01 K/uL (0.00-0.20); Basophils % (auto) 0.1 %; Hematocrit (blood only) 43.2 % (37.0-47.0); Hemoglobin 14.3 g/dl (12.0-16.0); Immature Granulocytes # (auto) 0.02 K/uL (0.01-0.20); Immature Granulocytes % (auto) 0.3 %; Lymphocytes # (auto) 0.66 K/uL (1.20-3.40); Lymphocytes % (auto) 8.5 %; Mean Corpuscular Hemoglobin 29.2 pg (25.0-34.0); Mean Corpuscular Hgb Conc 33.1 g/dL (32.0-36.0); Mean Corpuscular Volume 88.3 fL (80.0-100.0); Mean Platelet Volume 10.8 fL (9.4-12.4); Monocytes # (auto) 0.19 K/uL (0.11-0.59); Monocytes % (auto) 2.5 %; Neutrophils # (auto) 6.87 K/uL (1.40-6.50); Neutrophils % (auto) 88.6 %; Platelet Count 239 K/uL (130-400); RDW Coefficient of Variation 12.8 % (11.5-14.5); RDW Standard Deviation 41.8 fL (36.4-46.3); Red Blood Count 4.89 M/uL (4.20-5.40); White Blood Count 7.75 K/ul (4.8-10.8)
[2024-03-06 09:08] LABS: Albumin Globulin Ratio 1.3 (0.9-2); Albumin Level 3.5 gm/dl (3.4-5.0); BUN Creatinine Ratio 18.3 (10-20); Bilirubin,Total 0.5 mg/dl (0.2-1.0); Calcium 9.2 mg/dl (8.6-10.3); Creatinine Clr Calc Pharmacy 76.4 ml/min; Est GFR (African American) 110.4 ml/min; Est GFR (Non-African American) 95.2 ml/min; Globulin 2.7 gm/dl (2.5-4.0); Potassium 4.3 mmol/L (3.5-5.1); Total Protein 6.2 gm/dl (6.0-8.3)
--- NOTE | 2024-03-06 13:39 | Electrocardiogram Report ---
Test Reason : Blood Pressure : / mmHG Vent. Rate : 066 BPM Atrial Rate : 066 BPM P-R Int : 130 ms QRS Dur : 072 ms QT Int : 422 ms P-R-T Axes : 048 065 038 degrees QTc Int : 442 ms Normal sinus rhythm Normal ECG When compared with ECG of 03-MAR-2024 11:14, No significant change was found Confirmed by Farzad Gibson ([id number]) on 03/06/2024 1:39:11 PM Referred By: REFERRED SELF Confirmed By:Devendra Gibson
--- NOTE | 2024-03-06 16:25 | Hospitalist Progress Note ---
Date of Service March 06, 2024 Assessment & Plan (1) Allergic reaction: Plan: Patient has presented to the ED 3 times within 24 hours of admit, for recurrent urticaria and swelling of the upper lip since arriving to the [facility] on 03/02/2024 While we cannot rule out Prozac as a possible cause, similar reaction 20 years ago with Wellbutrin looks like erythema migrans, could be drug or viral cause Patient confirms that the rash started after she arrived to the [facility], prozac stopped, on pepcid, given methylprednisolone 40 mg bid , Claritin 20 bid and doxepin Ordered RAST testing and food allergy panel for further evaluation, tryptase pending -greatly appreciate allergy input, pt was very appreciative of consult and education DM type II diet . a1c is 5.3 however is on steroids, spoke via secure chat to both allergy doctors in the group (2) Suicidal ideations: Plan: Patient is currently at the [facility] since 03/02/2024 due to ongoing suicidal ideation since being started on Prozac in January Denies current suicidal ideations or homicidal ideations Psychiatry consult has seen and feels there is no longer a risk plans to return home at discharge (3) Hyperglycemia: Plan: Patient was noted to be hyperglycemic at 181 on arrival Noted to have 1+ glucose in her urine No previous history of diabetes, her hyperglycemia is likely due to multiple doses of IV steroids over the past 24 hours hemoglobin A1c 5.3 Admission and Anticipated Discharge Date Admission Date: March 04, 2024 Subjective pt is somewhat improved with some new areas of rash seen no respiratory symptoms no lip or mouth swelling Physical Exam Physical Exam: Awake alert appropriate able to provide a good history. She is tachycardic but regular with regard to her heart Lungs are clear without wheezes there is no stridor Abdomen NABS soft nontender well demarcated rash on torso arms and legs, serpiginous Results & Data Results & Data Vital Signs (Past 12 Hours) Vital Signs Temp Pulse Pulse Resp BP Pulse Ox O2 Del Method 03/06/24 14:54 97.9 F 84 20 136/78 99 Room Air 03/06/24 10:54 98.2 F 89 18 104/70 95 Room Air 03/06/24 07:27 71 03/06/24 06:45 97.2 F L 71 18 108/69 99 Room Air 03/06/24 04:53 98.6 F 90 20 96/58 L 97 Room Air Laboratory Results Reviewed CBC reviewed chemistry PG Care Time/CCT Total # of Minutes Spent Total Time Spent with Patient: Total time spent is greater than 50% in coordination of care (as documented) at patient's floor/unit and/or counseling patient: Coding Level of Care Code 40400 SUB INP/OBS CARE 2/35MIN Diagnoses Allergic reaction T78.40XA Suicidal ideations R45.851 Hyperglycemia R73.9
[2024-03-06] MEDS ORDERED: EPINEPHrine INJ 1 MG/ML AMP IM PRN (18:07)
[2024-03-06] MEDS: LORazepam 0.5 MG in SYRINGE 0.25 ML IV PRN (23:02)
[2024-03-07 08:59] LABS: Basophils # (auto) 0.01 K/uL (0.00-0.20); Basophils % (auto) 0.1 %; Eosinophils # (auto) 0.01 K/uL (0.00-0.50); Eosinophils % (auto) 0.1 %; Hematocrit (blood only) 39.4 % (37.0-47.0); Hemoglobin 12.8 g/dl (12.0-16.0); Immature Granulocytes # (auto) 0.04 K/uL (0.01-0.20); Immature Granulocytes % (auto) 0.6 %; Lymphocytes # (auto) 1.36 K/uL (1.20-3.40); Lymphocytes % (auto) 19.8 %; Mean Corpuscular Hemoglobin 28.8 pg (25.0-34.0); Mean Corpuscular Hgb Conc 32.5 g/dL (32.0-36.0); Mean Corpuscular Volume 88.5 fL (80.0-100.0); Mean Platelet Volume 11.5 fL (9.4-12.4); Monocytes # (auto) 0.32 K/uL (0.11-0.59); Monocytes % (auto) 4.7 %; Neutrophils # (auto) 5.12 K/uL (1.40-6.50); Neutrophils % (auto) 74.7 %; Platelet Count 247 K/uL (130-400); Red Blood Count 4.45 M/uL (4.20-5.40); White Blood Count 6.86 K/ul (4.8-10.8)
[2024-03-07 09:02] LABS: Albumin Globulin Ratio 1.2 (0.9-2); Albumin Level 3.2 gm/dl (3.4-5.0); Bilirubin,Total 0.3 mg/dl (0.2-1.0); Calcium 8.7 mg/dl (8.6-10.3); Creatinine Clr Calc Pharmacy 75.3 ml/min; Est GFR (African American) 108.5 ml/min; Est GFR (Non-African American) 93.6 ml/min; Globulin 2.6 gm/dl (2.5-4.0); Magnesium 1.9 mg/dl (1.7-2.4); Total Protein 5.8 gm/dl (6.0-8.3)
[2024-03-07] MEDS: Nursing to Pharmacy Communication SCH (13:37)
[2024-03-07] MEDS: predniSONE 50 MG TAB PO SCH (13:41)
[2024-03-07] MEDS: FAMOTIDINE 20 MG TAB PO SCH (20:38)
--- NOTE | 2024-03-07 23:56 | Hospitalist Progress Note ---
Date of Service March 07, 2024 Assessment & Plan (1) Allergic reaction: Plan: Patient has presented to the ED 3 times within 24 hours of admit, for recurrent urticaria and swelling of the upper lip since arriving to the [facility] on 03/02/2024 While we cannot rule out Prozac as a possible cause, similar reaction 20 years ago with Wellbutrin looks like erythema migrans, could be drug or viral cause Patient confirms that the rash started after she arrived to the [facility], prozac stopped, on pepcid, given methylprednisolone 40 mg bid , Claritin 20 bid and doxepin Ordered RAST testing and food allergy panel for further evaluation, tryptase pending -greatly appreciate allergy input, pt was very appreciative of consult and education DM type II diet . a1c is 5.3 however is on steroids, spoke via secure chat to both allergy doctors in the group (2) Suicidal ideations: Plan: Patient is currently at the [facility] since 03/02/2024 due to ongoing suicidal ideation since being started on Prozac in January Denies current suicidal ideations or homicidal ideations Psychiatry consult has seen and feels there is no longer a risk plans to return home at discharge (3) Hyperglycemia: Plan: Patient was noted to be hyperglycemic at 181 on arrival Noted to have 1+ glucose in her urine No previous history of diabetes, her hyperglycemia is likely due to multiple doses of IV steroids over the past 24 hours hemoglobin A1c 5.3 Admission and Anticipated Discharge Date Admission Date: March 07, 2024 Subjective Patient reports her rash has decreased. Patient reports having symptoms of agitation tremors after taking doxepin Review of Systems Review of Systems: All systems reviewed & are unremarkable except as noted in HPI & below Physical Exam Physical Exam: Awake alert appropriate able to provide a good history. Regular rate Not using accessory muscles to breath decreased rash Results & Data Results & Data Vital Signs (Past 12 Hours) Vital Signs Temp Pulse Resp BP Pulse Ox O2 Del Method 03/07/24 19:42 36.6 C 82 18 118/75 94 Room Air 03/07/24 15:30 36.7 C 76 18 110/65 96 Room Air PG Care Time/CCT Total # of Minutes Spent Total Time Spent with Patient: Total time spent is greater than 50% in coordination of care (as documented) at patient's floor/unit and/or counseling patient: Coding Level of Care Code 69414 SUB INP/OBS CARE 235MIN Diagnoses Allergic reaction T78.40XA Suicidal ideations R45.851 Hyperglycemia R73.9
[2024-03-07 23:57] LABS: Almond Allergen IgE <0.10 kU/L; Alternaria Class 0; Alternaria IgE <0.10 kU/L; Ash (White) Class 0; Ash (White) IgE <0.10 kU/L; Asperg Fumig Class 0; Asperg Fumig IgE <0.10 kU/L; Bermuda Grass Class 0; Bermuda Grass IgE <0.10 kU/L; Birch Class 0; Birch IgE <0.10 kU/L; Cashew IgE <0.10 kU/L; Cat Dander Class 0; Cat Dander IgE <0.10 kU/L; Cladosporium IgE <0.10 kU/L; Cladosporium her Class 0; Cockroach Allergen Class 0; Cockroach IgE Ab <0.10 kU/L; Codfish IgE <0.10 kU/L; Cottonwood Class 0; Cottonwood IgE <0.10 kU/L; D. farinae Class 0; D. farinae IgE <0.10 kU/L; D. pteronyssinus Class 0; D. pteronyssinus IgE <0.10 kU/L; Dog Dander Class 0; Dog Dander IgE <0.10 kU/L; Egg White Class 0; Egg White IgE <0.10 kU/L; Elm Class 0; Elm IgE <0.10 kU/L; Immunoglobulin IgE 72 kU/L (<OR=114); Maple (Box Elder) IgE <0.10 kU/L; Maple Class 0; Milk, Cow's Class 0; Milk, Cow's IgE <0.10 kU/L; Mountain Cedar Class 0; Mountain Cedar IgE <0.10 kU/L; Mouse Urine Protein Class 0; Mouse Urine Protein IgE <0.10 kU/L; Mugwort (W6) IgE <0.10 kU/L; Mugwort Class 0; Oak-White Class 0; Oak-White IgE <0.10 kU/L; Peanut IgE <0.10 kU/L; Penic Notatum Class 0; Penic Notatum IgE <0.10 kU/L; Rough Pigweed Class 0; Rough Pigweed IgE <0.10 kU/L; Salmon IgE <0.10 kU/L; Scallop IgE <0.10 kU/L; Sheep Sorrel Class 0; Sheep Sorrel IgE <0.10 kU/L; Short Ragweed Class 0; Short Ragweed IgE <0.10 kU/L; Shrimp Class 0; Shrimp IgE <0.10 kU/L; Sycamore Class 0; Sycamore IgE <0.10 kU/L; Timothy Class 0; Timothy IgE <0.10 kU/L; Tuna IgE <0.10 kU/L; Walnut IgE <0.10 kU/L; Walnut Tree Class 0; Walnut Tree IgE <0.10 kU/L; Wheat Class 0; White Mulberry Class 0; White Mulberry IgE <0.10 kU/L
[2024-03-08] MEDS: diphenhydrAMINE Capsule 25 MG CAP PO PRN (05:22)
--- NOTE | 2024-03-08 15:47 | Discharge Summary ---
Date of Service March 08, 2024 Admission HPI Per Admitting Provider Mariaa is a 58-year-old female patient of the [facility] with a past medical history significant suicidal ideations for who presented to the [facility] ED on 03/04/2024 for the third time in the past 24 hours for ongoing rash and lip swelling thought to be associated with an allergic reaction to unknown exposure. She was initially seen in the [facility] ED the morning of 03/03/2024 and was given 50 mg IV Benadryl, 20 mg IV famotidine, 15 mg IV Toradol, 10 mg IV dexamethasone and discharged back to the [facility] with prescriptions for p.o. Benadryl, p.o. famotidine, p.o. prednisone x 4 days, and epinephrine autoinjector for anaphylaxis. She returned to the ED in the [facility] today (03/04/2024) for worsening urticaria and swelling of the upper lip. The patient was given 1 dose from her EpiPen autoinjector approximately 1 hour prior to ED arrival with significant improvement in symptoms on arrival. She was stable while in the ED and given 500 mL NSS, 125 mg IV methylprednisolone, and 20 mg IV famotidine prior to being discharged back to the [facility]. She returned again this afternoon for worsening upper lip swelling. She was given a dose of IM epinephrine prior to arrival. Other than initial sinus tachycardia likely due to epinephrine administration the patient has remained stable since arrival. Labs are again consistent for leukocytosis likely due to multiple doses of IV methylprednisolone, glucose of 181, chloride of 113, UA without signs of infection, and negative toxicology screen. Prior to admission the patient was given 1 g IV Tylenol, a total of 75 mg IV Benadryl, and 1 L normal saline. Patient was sitting in bed in no acute distress at time of exam. She states that she arrived to the [facility] on 03/02/2024 due to significant suicidal ideation since starting Prozac and January. She had been undergoing Prozac taper, this has subsequently been completely stopped due to concerns for possible source. Since arriving to the [place] she was started on an elimination diet as her psychiatrist thought she may be experiencing increased anxiety/depression from possible foodborne histamine release. She explains that since being started on elimination diet she has had multiple new foods including raw honey, sunflower seed butter, gluten-free crackers and some other foods she is unable to remember at this time. She confirms that her allergic reaction symptoms started after she began this diet. Currently her lip swelling is unchanged since arrival, she still has the urticarial rash on the majority of her body which is very itchy for her. She does feel that the Benadryl does help with the itching. If possible she would like to avoid further steroids as they have significantly increase her anxiety over the past 24 hours. When asked, she denies recent suicidal or homicidal ideations over the past 24 hours but still does not feel like she is back to her baseline mental status prior to starting Prozac. Denies recent fever, chills, throat/tongue swelling, shortness of breath, chest pain, cough, abdominal pain, nausea/vomiting, urinary symptoms, diarrhea, lower extremity swelling, and recent trauma. She did have a similar allergic reaction while on Wellbutrin approximately 20 years ago. Principal Diagnosis allergic reaction Discharge Exam Awake alert appropriate able to provide a good history. Regular rate Not using accessory muscles to breath decreased rash Discharge Data Allergies Allergy/AdvReac Type Severity Reaction Status Date / Time honey Allergy Intermediate Hives Verified 03/06/24 10:37 sunflower seed Allergy Intermediate Hives Verified 03/06/24 10:37 bupropion [From Wellbutrin] Allergy Anaphylaxis Verified 03/04/24 06:00 fluoxetine [From Prozac] Allergy Anaphylaxis Verified 03/04/24 05:59 sertraline [From Zoloft] Allergy Anaphylaxis Verified 03/04/24 05:59 hydroxyzine AdvReac Depression Verified 03/04/24 05:59 skullcap Allergy Anaphylaxis Uncoded 03/04/24 05:59 Consultations 03/04/24 19:17 ED Decision to Admit Stat 03/04/24 21:39 Consult Psychiatry Routine 03/05/24 10:07 Consult Allergy / Immunology Routine Hospital Course (1) Allergic reaction: Patient has presented to the ED 3 times within 24 hours of admit, for recurrent urticaria and swelling of the upper lip since arriving to the [facility] on 03/02/2024 While we cannot rule out Prozac as a possible cause, similar reaction 20 years ago with Wellbutrin looks like erythema migrans, could be drug or viral cause Patient confirms that the rash started after she arrived to the [facility], prozac stopped, on pepcid, given methylprednisolone 40 mg bid , Claritin 20 bid and doxepin Ordered RAST testing and food allergy panel for further evaluation, tryptase pending -greatly appreciate allergy input, pt was very appreciative of consult and education DM type II diet . a1c is 5.3 however is on steroids, spoke via secure chat to both allergy doctors in the group Patient will be discharged on a steroid taper continue famotidine and ceterizine. Held doxepine as patient had reaction. (2) Suicidal ideations: Patient is currently at the [facility] since 03/02/2024 due to ongoing suicidal ideation since being started on Prozac in January Denies current suicidal ideations or homicidal ideations Psychiatry consult has seen and feels there is no longer a risk plans to return home at discharge (3) Hyperglycemia: Patient was noted to be hyperglycemic at 181 on arrival Noted to have 1+ glucose in her urine No previous history of diabetes, her hyperglycemia is likely due to multiple doses of IV steroids over the past 24 hours hemoglobin A1c 5.3 Total Time Total Time Spent Total Time Spent (In Minutes): 32 Discharge Plan Discharge Items Patient Disposition: Home - Self-Care Reason For Visit: RECURRENT ALLERGIC REACTION,URTICARIA,LIP SWELLING Discharge Diagnosis: allergy Activity: Resume your previous activity Non-emergency contact: Primary Care Provider Call non-emergency contact if: you have any medication questions Follow-up/Referrals: Faiza Loco MD [Primary Care Provider] - Diet: Regular Addtl Attending Provider Instructions: Recommend continuing prednisone for 5 to 7 days followed by a taper over a week or so. Continue cetirizine 20 mg p.o. twice daily. Famotidine can be continued. recommend followup with PCP in 1-2 weeks Pending Studies at Discharge: No Stand-Alone Forms: My [facility] [employer], Smoking Cessation Medications and DC Order Prescriptions: New cetirizine 10 mg Tablet 20 mg PO BID Qty: 60 0RF famotidine 20 mg Tablet 20 mg PO BID Qty: 60 0RF Continued epinephrine [Auvi-Q] 0.3 mg/0.3 mL auto-injector 0.3 mg IM Q5M PRN (Reason: anaphylaxis) Qty: 2 1RF Changed prednisone 10 mg tablet 10 mg PO DIRECTED Qty: 63 0RF Rx Instructions: see taper instructions Take 4 tablets twice a day for 3 days, Then 3 tablets twice a day for 3 days, then 2 tablets twice a day for 3 days then 1 tablet twice a day for 3 days then 1 tablet once a day for 3 days. Benadryl Allergy 25 mg tablet 25 - 50 mg PO USEASDIRECTD PRN (Reason: rash) Qty: 0 0RF Rx Instructions: Following ED visit 03/03/24 patient instructed to take benadryl q6hrs (Dr. Moreau) Discontinued famotidine 20 mg tablet 20 mg PO DAILY Rx Instructions: Following 03/03/24 ED visit, take daily for treatment of allergic reaction (Dr. Moreau). Discharge Orders: Discharge Order (Routine); Ordered 03/08/24 Ordered By: Armando Wagner Admission Data Admit Date/Time: 03/07/24 12:16 Attending Provider: Armando Wagner Admit Provider: Ben Nguyen Primary Care Provider: Faiza Loco Other Providers: Ben Nguyen; Polina Son; Bharat Adhikari; Chase Loera Jr; Kyra Cooper; Zarina Prado; Jeffery Cervantes; Kwadwo Maya Other Interventions: Discharge Summary Assessment (RN) Last Done: 03/08/24 12:45 Coding Level of Care Code 14076 INP/OBS DISCH >30 MIN Diagnoses Allergic reaction T78.40XA Suicidal ideations R45.851 Hyperglycemia R73.9
--- NOTE | 2024-03-12 07:43 | Coding Query ---
To promote full compliance with coding requirements relating to patient care, provider participation is requested in all cases of bagger meat uncertainty. Please assist us with the question(s) below: Coding Question(s): The diagnosis below was documented in the 03/05 Allergy & Immunology Consultation, then subsequently fell off all further documentation. Please indicate if it is still a possible diagnosis or ruled out. Physician's Response(s): ERYTHEMA MULTIFORME (documented on the 03/05 Allergy & Immunology Consultation) ( ) Diagnosed and POA ( ) Diagnosed and not POA ( ) Ruled out ( ) Other (please specify) MTDD
== END 2024-03-08 13:54 | disposition home or self-care (01) ==
LOC: 2W 13:39 → ED 13:39 → SUATTDRO 19:43 → 2W 23:15